=== PATIENT | female | born 1965 ===

== ENCOUNTER → 2020-09-20 | Outpatient (REF) ==
--- NOTE | 2020-09-20 13:23 | REP ---
INDICATION: DDD COMPARISON: None. TECHNIQUE: AP, lateral, bilateral oblique and sunrise views. FINDINGS: Moderate tricompartmental osteoarthritic degenerative changes are appreciated. Findings include subchondral sclerosis, joint space narrowing, cortical irregularity and early osteophyte formation. No acute fracture or dislocation. No effusion. IMPRESSION: Moderate tricompartmental osteoarthritic degenerative changes. <Electronically signed by Fritz Bond > 09/20/20 [id number]
== END ==
LOC: M RAD 12:24
PROVIDERS: ATTEND Internal Medicine
DX: M51.36 Other intervertebral disc degeneration, lumbar region (principal)